=== PATIENT | male | born 1970 | race Caucasian/White ===

== ENCOUNTER 2017-02-19 05:50 | Emergency (ER) | payer BC, OTHER ==
--- NOTE | 2017-02-19 06:11 | Emergency Department Record ---
History of Present Illness - General Chief complaint: Extremity Problem Stated complaint: RIGHT HAND INJURY Time Seen by Provider: 02/19/17 06:08 Source: Patient Mode of Arrival: Ambulatory Limitations: No limitations - History of Present Illness Initial comments: 47 yo male presents to ED with a CC of injury to the right middle and ring finger resulting from a piece of metal striking his fingers while at work. Patient reports pain with finger flexion, denies other injury. Patient denies health problems other than arthritis. MD Complaint: Extremity pain Onset/Timin -: Minutes(s) Location: Right, Hand History of Same: No Severity scale (1-10): 6 Quality: Aching Consistency: Constant, Getting worse Improves with: Nothing Worsens with: Palpation - Related Data Home Medications Medication Instructions Recorded Confirmed Last Taken Folic Acid 1 mg PO DAILY 02/19/17 02/19/17 Unknown Meloxicam [Meloxicam] 7.5 mg PO BID PRN 02/19/17 02/19/17 Unknown Methotrexate [Xatmep] 25 mg PO WEEKLY 02/19/17 02/19/17 Unknown Remicade 1 INJ ASDIR 02/19/17 Unknown Previous Rx's Medication Instructions Recorded Hydrocodone/Acetaminophen [Boswell 1 each PO Q6H PRN #10 tablet 02/19/17 5-325 Tablet] Allergies Allergy/AdvReac Type Severity Reaction Status Date / Time ortezla Allergy DIFFICULTY Uncoded 02/19/17 06:03 BREATHING Travel Screening - Travel/Exposure Within Last 30 Days Have you traveled within the last 30 days?: No Review of Systems Constitutional: Denies: Chills, Fever, Malaise, Night sweats Eyes: Denies: Eye discharge, Eye pain ENT: Denies: Congestion, Ear pain, Epistaxis Respiratory: Denies: Cough, Dyspnea Cardiovascular: Denies: Chest pain, Dyspnea on exertion Endocrine: Denies: Fatigue, Heat or cold intolerance Gastrointestinal: Denies: Abdominal pain, Nausea, Vomiting Genitourinary: Denies: Incontinence, Retention Musculoskeletal: Reports: Arthralgia. Denies: Back pain, Gout, Joint swelling Skin: Denies: Bruising, Change in color Neurological: Denies: Abnormal gait, Confusion, Headache, Seizure Psychiatric: Denies: Anxiety Hematological/Lymphatic: Denies: Anemia, Blood Clots Past Medical History - SOCIAL HISTORY Smoking Status: Current every day smoker Alcohol Use: Rare Drug Use: None - RESPIRATORY Hx Respiratory Disorders: No - CARDIOVASCULAR Hx Cardio Disorders: No - NEURO Hx Neuro Disorders: No - GI Hx GI Disorders: No - Hx Genitourinary Disorders: No - ENDOCRINE Hx Endocrine Disorders: No - MUSCULOSKELETAL Hx Musculoskeletal Disorders: Yes Hx Arthritis: Yes (psoriatic arthritis) - PSYCH Hx Psych Problems: No - HEMATOLOGY/ONCOLOGY Hx Hematology/Oncology Disorders: No Family Medical History Any Significant Family History?: Yes Hx Diabetes: Grandparents Hx HTN: Grandparents Physical Exam - General General Appearance: Alert, Oriented x3, Cooperative, Mild distress Limitations: No limitations - Head Head exam: Atraumatic, Normocephalic, Normal inspection Head exam detail: negative: Abrasion, Contusion, Brunson's sign, General tenderness, Hematoma, Laceration - Eye Eye exam: Normal appearance. negative: Conjunctival injection, Periorbital swelling, Periorbital tenderness, Scleral icterus - ENT Ear exam: negative: Auricular hematoma, Auricular trauma Nasal Exam: negative: Active bleeding, Discharge, Dried blood, Foreign body Mouth exam: negative: Drooling, Laceration, Muffled voice, Tongue elevation - Neck Neck exam: Normal inspection. negative: Meningismus, Tenderness - Respiratory Respiratory exam: Normal lung sounds bilaterally. negative: Rales, Respiratory distress, Rhonchi, Stridor - Cardiovascular Cardiovascular Exam: Regular rate, Normal rhythm, Normal heart sounds - GI/Abdominal GI/Abdominal exam: Soft. negative: Rebound, Rigid, Tenderness - Rectal Rectal exam: Deferred - exam: Deferred - Extremities Extremities exam: Tenderness, Other (TTP to the right middle and ring fingers, FROM intact but painful, strong radial pulse present). negative: Calf tenderness, Pedal edema - Back Back exam: Denies: CVA tenderness (R), CVA tenderness (L) - Neurological Neurological exam: Alert, Normal gait, Oriented X3 - Psychiatric Psychiatric exam: Normal affect, Normal mood - Skin Skin exam: Normal color. negative: Abrasion Type of lesion: negative: abrasion Course Vital Signs 02/19/17 05:54 Temperature 97.7 F Pulse Rate [ 92 H Pulse Ox Probe] Respiratory 16 Rate Blood Pressure 127/82 [Left Arm] Pulse Ox 94 L - Reevaluation(s) Reevaluation #1: 02/19/17 06:27 Right hand: Non-displaced, comminuted tuft fracture right distal ring finger Patient was updated on his radiology results, will place in splint and refer to employee health with a hand referral for follow-up as well. Patient appears stable for discharge at this time. Disposition Disposition: Discharge Clinical Impression: Closed fracture of tuft of distal phalanx of finger Disposition: Home, Self-Care Condition: (2) Stable Instructions: Finger Fracture (ED) Additional Instructions: Return to ED if your symptoms worsen or if you have any concerns. Boswell as directed for pain symptoms. Follow-up with employee health in 1-3 days as directed. Follow-up with Dr. Cerda in 3-5 days as directed, call for appointment. Prescriptions: Hydrocodone/Acetaminophen [Boswell 5-325 Tablet] 1 each PO Q6H PRN #10 tablet PRN Reason: Pain - Moderate (5-7) Referrals: HELDER CERDA M.D. [MEDICAL DOCTOR] - Forms: Patient Portal Access Time of Disposition: 06:30 Quality - Quality Measures Quality Measures: N/A - Blood Pressure Screening Does Patient Have Any of the Following: No Blood Pressure Classification: Pre-Hypertensive BP Reading Systolic Measurement: 127 Diastolic Measurement: 82 Screening for High Blood Pressure: < Pre-Hypertensive BP, F/U Documented > [ [id number]] Pre-Hypertensive Follow-up Interventions: Referral to alternative/primary care provider.
[2017-02-19] MEDS ORDERED: HYDROCODONE/APAP 5/325MG TABLET PO ONE (06:31)
[2017-02-19 07:31] LABS: BENZODIAZEPINE SCREEN URINE NOT DETECTED; COCAINE SCREEN URINE NOT DETECTED; PHENCYCLIDINE SCREEN URINE NOT DETECTED; THC SCREEN URINE NOT DETECTED
[2017-02-19 07:32] LABS: AMPHETAMINE SCREEN URINE NOT DETECTED; BARBITURATE SCREEN URINE NOT DETECTED; METHADONE SCREEN URINE NOT DETECTED; METHAMPHETAMINE SCREEN NOT DETECTED; OPIATE SCREEN URINE NOT DETECTED; OXYCODONE SCREEN URINE NOT DETECTED; PROPOXYPHENE SCREEN URINE NOT DETECTED; TRICYCLIC ANTIDEPRESSANT SCRN NOT DETECTED
--- NOTE | 2017-02-19 16:49 | RADIOLOGY REPORT ---
EXAM: HAND, RIGHT 3 VIEWS HISTORY: BLUNT TRAUMA FROM HEAVY OBJECT FALLING ON HAND. TECHNIQUE: Three views of the right hand are obtained. COMPARISON: None. ENCOUNTER: Initial. FINDINGS: There is normal bone mineralization. There is a comminuted, nondisplaced fracture of the tuft of the fourth distal phalanx. There is mild associated soft tissue swelling. No other osseous fracture is seen nor is there dislocation. There are osteoarthritic changes scattered throughout the hand most pronounced in the first MCP joint where the changes are mild to moderate. There are degenerative changes of the wrist as well, most pronounced in the radiocarpal joint where the changes are moderate in degree. No periarticular erosion. IMPRESSION: 1. NONDISPLACED COMMINUTED FRACTURE OF THE TUFT OF THE FOURTH DISTAL PHALANX. 2. DEGENERATIVE CHANGES. JOB NUMBER: [id number] MTDD
== END 2017-02-19 07:24 | disposition home or self-care (01) ==
LOC: ER 05:50
DX: S62.664A Nondisplaced fracture of distal phalanx of right ring finger, initial encounter for closed fracture (principal); W22.8XXA Striking against or struck by other objects, initial encounter; Y92.63 Factory as the place of occurrence of the external cause; Y99.0 Civilian activity done for income or pay
CPT/HCPCS: 80305; 99283